=== PATIENT | male | born 1960 | race Caucasian/White ===

== ENCOUNTER → 2020-05-11 12:16 | Outpatient (BNVA) | payer OTHER, SELFPAY | PROVIDERS: PCP Family Medicine; Visit Provider Nurse Practitioner Family | DX: J06.9 Acute upper respiratory infection, unspecified (principal); Z20.828 Contact with and (suspected) exposure to other viral communicable diseases | CPT/HCPCS: 87635 ==

== ENCOUNTER 2023-05-06 07:38 | Emergency (ER) | payer OTHER, SELFPAY ==
--- NOTE | 2023-05-06 08:05 | XR_ITS ---
WS: [id number] XR hip LT 2-3V wo/w pel* [id number] REASON FOR EXAM: trauma FINDINGS: No fracture or other focal bone lesion. Mild narrowing of the hip joint space with mild subchondral sclerosis and osteophytosis of the acetab ulum. No soft tissue abnormality. IMPRESSION: Mild osteoarthritis of the left hip with no acute abnormality identified.
[2023-05-06 08:13] VITALS: BP 182/128; PULSE 115; TEMP 36.6; O2SAT 94; BMI 32.3
--- NOTE | 2023-05-06 08:18 | ECG_ITS ---
[facility] Test Date: 2023-05-06 Pat Name: Gregory Mukherjee Department: Room: Gender: Male Cattle Feeder: : 1960 Requested By: David Tong Order Number: [id number] Piper MD: Sina Berman M.D. Measurements Intervals [place] Rate: 109 P: -52 VA: 141 QRS: -32 QRSD: 89 T: -15 QT: 339 QTc: 458 Interpretive Statements SINUS TACHYCARDIA LEFT AXIS DEVIATION [QRS AXIS < -30] POSSIBLE RIGHT VENTRICULAR CONDUCTION DELAY [RSR (QR) IN V1/V2] VOLTAGE CRITERIA FOR LVH [MEETS CRITERIA IN ONE OF: R(aVL), S(V1), R(V5), R(V5/V6)+S(V1)] Compared to ECG 12/03/2016 15:56:28 Left-axis deviation now present Myocardial infarct finding no longer present Electronically Signed On 05-06-2023 9:34:08 WET MACHINE CUTTER by Sina Berman M.D. [email or web address]
--- NOTE | 2023-05-06 08:30 | ED_ITS ---
HPI - Dizziness 2 General: Chief Complaint: Dizziness Stated Complaint: fall, left hip pain Time Seen by Provider: 05/06/23 07:41 Source: patient Mode of arrival: ambulatory History of Present Illness: HPI Narrative: 63-year-old male presents emergency room complaining of left hip pain has been going on for the last few weeks he fallen a few weeks ago he still been able to ambulate on it did not strike his head and lose consciousness. He also has marked elevated his blood pressure and a mild headache no chest pain. MD elicited complaint: dizziness Associated symptoms: Denies chest pain or chills Review of Systems 2 Const: Denies: fever(s) or chills Card: Denies: chest pain Resp: Denies: dyspnea GI: Denies: abdominal pain : Denies: dysuria, urinary frequency or urinary urgency Musc: Denies: neck pain or back pain Skin/Breast: Denies: rash Physical Exam 2 Const: COMMON NORMALS: no acute distress GENERAL APPEARANCE: cooperative and comfortable ORIENTATION/CONSCIOUSNESS: Yes awake, Yes oriented to person, Yes oriented to place and Yes oriented to time HENMT: COMMON NORMALS: normocephalic, atraumatic and hearing grossly normal bilaterally HEAD & SCALP: normocephalic and atraumatic Resp: COMMON NORMALS: normal respiratory effort, No retractions, No use of accessory muscles and clear to auscultation bilaterally AUSCULTATION: clear to auscultation bilaterally Cardio: COMMON NORMALS: regular rate, regular rhythm and No murmurs present (Cardio) RATE: regular rate RHYTHM: regular rhythm GI: COMMON NORMALS: Soft to palpation and No hepatosplenomegaly present A USCULTATION: Yes normoactive bowel sounds PALPATION: Yes Soft to palpation, No Tenderness to palpation present (GI), No Guarding due to palpation present (GI) and Yes No hepatosplenomegaly present Extremity: COMMON NORMALS: normal to inspection, capillary refill normal, no clubbing, cyanosis or edema, no calf tenderness and no pedal edema Neuro: SENSORIUM/ORIENTATION: Yes oriented to person, Yes oriented to place and Yes oriented to time Skin: COMMON NORMALS: no rashes or lesions noted GENERAL SKIN EXAM: no rashes or lesions noted Course 2 Vital Signs: Vital signs: Vital Signs Temperature 98 F 05/06/23 08:13 Pulse Rate 111 H 05/06/23 11:24 Blood Pressure 132/95 05/06/23 11:24 Pulse Oximetry 93 05/06/23 11:24 Oxygen Delivery Me thod Room Air 05/06/23 11:24 MDM - Dizziness Medical Decision Making X-ray of the hip does not show any acute fracture refers a lot of pain to the SI joint neurologically is lower extremities intact there is no red flag symptoms. Will discharge home with diclofenac. Blood pressure was markedly elevated on arrival after multiple medications and is improved still elevated. Will discharge home on Toprol-XL 25 p.o. daily lisinopril 20 p.o. daily and amlodipine 5 p.o. daily he should follow-up with his primary care doctor within the week to reevaluate his blood pressure. If the SI joint pain continues he may need further evaluation. Medical Records I reviewed the patient's medical records. Lab Data I reviewed the patient's lab results. 05/06/23 08:28 05/06/23 08:28 Laboratory Results WBC 4.92 10^3/uL (3.29-11.43) 05/06/23 08:28 RBC 5.41 10^6/uL (3.85-5.65) 05/06/23 08:28 Hgb 16.60 g/dL (11.27-16.99) 05/06/23 08:28 Hct 48.3 % (37-53) 05/06/23 08:28 MCV 89.3 fl (82-101) 05/06/23 08:28 MCH 30.7 pg (27-33) 05/06/23 08: MCHC 34.4 g/dL (30-55) 05/06/23 08:28 RDW 12.6 % (12.1-15.1) 05/06/23 08:28 Plt Count 226 10^3/cmm (157-399) 05/06/23 08:28 MPV 8.8 fL (7.4-10.4) 05/06/23 08: Neut % (Auto) 54.3 % 05/06/23 08:28 Lymph % (Auto) 35.0 % 05/06/23 08:28 [place] % (Auto) 7.5 % 05/06/23 08:28 Eos % (Auto) 2.2 % 05/06/23 08:28 Baso % (Auto) 0.6 % 05/06/23 08: Neut # (Auto) 2.67 10^3/uL (1.8-7.7) 05/06/23 08: Lymph # (Auto) 1.7 10^3/uL (0.8-4.8) 05/06/23 08:28 [place] # (Auto) 0.4 10^3/uL (0.2-0.9) 05/06/23 08: Eos # (Auto) 0.1 10^3/uL (0.0-0.8) 05/06/23 08: Baso # (Auto) 0.0 10^3/uL (0.0-0.1) 05/06/23 08: Nucleated RBC % (auto) 0 % 05/06/23 08: Nucleated RBCs # 0.0 /100WBC 05/06/23 08:28 Sodium 138 mmol/L (136-145) 05/06/23 08:28 Potassium 3.8 mmol/L (3.5-5.1) 05/06/23 08: Chloride 103 mmol/L (98-107) 05/06/23 08:28 Carbon Dioxide 27 mmol/L (22-29) 05/06/23 08:28 Anion Gap 11.8 (5-19) 05/06/23 08:28 BUN 11 mg/dL (8-23) 05/06/23 08:28 Creatinine 0.9 mg/dL (0.7-1.2) 05/06/23 08: GFR Calculation 84.7 mL/min (90-130) L 05/06/23 08:28 Glucose 108 mg/dL (65-115) 05/06/23 08:28 Calculated Osmolality 286 mOsm/kg (285-295) 05/06/23 08:28 Calcium 9.4 mg/dL (8.5-10.5) 05/06/23 08:28 Total Bilirubin 0.4 mg/dL (0.15-1.2) 05/06/23 08:28 AST 15 U/L (0-40) 05/06/23 08:28 ALT 20 U/L (0-41) 05/06/23 08:28 Alkaline Phosphatase 69 U/L (40-130) 05/06/23 08:28 Total Protein 6.7 g/dL (6.6-8.7) 05/06/23 08:28 Albumin 4.3 g/dL (3.5-5.2) 05/06/23 08:28 Globulin 2.4 g/dL (1.3-4.6) 05/06/23 08:28 All radiology interpretation(s) finalized by discharge Discharge Plan Discharge Patient Disposition: Home Clinical Impression: HTN (hypertension), SI (sacroiliac) joint dysfunction Condition: Stable Prescriptions: New amlodipine 5 mg tablet 5 mg PO DAILY Qty: 30 0RF Toprol XL 25 mg tablet extended release 24 hr 25 mg PO DAILY Qty: 30 0RF lisinopril 20 mg tablet 20 mg PO DAILY Qty: 30 0RF diclofenac sodium 75 mg tablet,delayed release (DR/EC) 75 mg PO Q12H PRN (Reason: pain) Qty: 20 0RF Discharge Orders: Discharge ED (Routine); Ordered 05/06/23 Ordered By: David Sargent Referrals: Robbin Manzo MD [Primary Care Provider] - Discharge Diet: Usual diet Discharge Activity: Increase activity as tolerated Patient Instructions: Opioid Safety, Pain Management Activity Restrictions/Additional Instructions: Thank you for choosing [facility] for your healthcare needs today. Please realize this is an emergency room and that we are providing you with a medical screening exam and this may not be complete and all inclusive of all the testing and or work up that you may need to determine your ailment or severity of your illness. It is very important that you follow up as instructed or that you return to the Emergency Department should you have concerns or if your condition changes or worsens in any way. You were seen today for elevated blood pressure and left hip and sacroiliac joint pain. X-rays of your hip were unremarkable. Neurologically lower extremities intact. Your blood pressure was markedly elevated. Recommend that you follow-up with your primary care doctor within the next week. You are given 3 different blood pressure medications to start with you will likely need further adjustment of your medications as an outpatient basis. He also given an anti-inflammatory to use for pain. Follow-up with your primary care doctor if the SI joint pain continues to cause discomfort they can recommend further evaluation. Coding Level of Care Code ED Electrical Controls Designer for Rohini Araiza
[2023-05-06] MEDS: amlodipine 5 mg Tablet PO (08:37)
[2023-05-06] MEDS: lisinopril 20 mg Tablet PO (08:37)
[2023-05-06] MEDS: hyDRALAzine 20 mg/mL INJ 1 mL 10 MG IVP (08:37)
[2023-05-06 08:38] LABS: Basophils % 0.6 %; Eosinophils # 0.1 10^3/uL (0.0-0.8); Eosinophils % 2.2 %; Hematocrit 48.3 % (37-53); Lymphocytes # 1.7 10^3/uL (0.8-4.8); Mean Corpuscular HGB Conc 34.4 g/dL (30-55); Mean Corpuscular Hemoglobin 30.7 pg (27-33); Mean Corpuscular Volume 89.3 fl (82-101); Mean Platelet Volume 8.8 fL (7.4-10.4); Monocytes # 0.4 10^3/uL (0.2-0.9); Monocytes % 7.5 %; Neutrophils # 2.67 10^3/uL (1.8-7.7); Neutrophils % 54.3 %; Nucleated Red Blood Cells % 0 %; Platelet Count 226 10^3/cmm (157-399); Red Blood Count 5.41 10^6/uL (3.85-5.65); Red Cell Distribution Width 12.6 % (12.1-15.1); White Blood Count 4.92 10^3/uL (3.29-11.43)
[2023-05-06 08:54] LABS: Alanine Aminotransferase 20 U/L (0-41); Albumin Level 4.3 g/dL (3.5-5.2); Alkaline Phosphatase 69 U/L (40-130); Anion Gap 11.8 (5-19); Aspartate Amino Transferase 15 U/L (0-40); Blood Urea Nitrogen 11 mg/dL (8-23); Calcium 9.4 mg/dL (8.5-10.5); Carbon Dioxide 27 mmol/L (22-29); Chloride 103 mmol/L (98-107); Globulin 2.4 g/dL (1.3-4.6); Glomerular Filtration Rate 84.7 mL/min (90-130); Glucose 108 mg/dL (65-115); Osmolality Calculated 286 mOsm/kg (285-295); Potassium 3.8 mmol/L (3.5-5.1); Sodium 138 mmol/L (136-145); Total Bilirubin 0.4 mg/dL (0.15-1.2); Total Protein 6.7 g/dL (6.6-8.7)
[2023-05-06 10:18] VITALS: BP 155/115; PULSE 115; O2SAT 92
[2023-05-06 11:24] VITALS: BP 132/95; PULSE 111; O2SAT 93
[2023-05-06] MEDS: metoprolol succinate ER (24 HR) 25 mg Tablet PO (11:34)
== END 2023-05-06 11:57 | disposition home or self-care (01) ==
PROVIDERS: Emergency Provider Family Medicine; PCP Family Medicine
DX: I10 Essential (primary) hypertension (principal); M99.04 Segmental and somatic dysfunction of sacral region
CPT/HCPCS: 73502; 80053; 85025; 93005; 96374; 99285; J0360

== ENCOUNTER 2023-06-02 07:43 | Outpatient (CLI) | payer MEDICARE, OTHER, SELFPAY ==
--- NOTE | 2023-06-02 07:52 | USCV_ITS ---
Gregory Mukherjee Age: 63 Gender: M : 1960 Exam Date: 06/02/2023 07:59 Ordering Phys: Kenan Wilson Technologist: SEJAL [place] [facility] [place]: DIZZINESS Risk Factors: Previous Vascular Surgery: Right Brachial BP: / Left Brachial BP: / Right Left Velocity (cm/s) Spectral Plaque Velocity (cm/s) Spectral Plaque Syst/Diast Broadening Syst/Diast Broadening 52.60/ 10.60 Prox CCA 73.80 / 21.50 77.60/ 23.70 Mid CCA 67.80 / 27.80 57.60/ 22.90 Distal CCA 44.00 / 17.10 51.80/ 22.20 Prox ICA 46.70 / 13.10 48.80/ 18.10 Mid ICA 47.10 / 18.70 39.70/ 17.90 Distal ICA 50.10 / 21.70 51.50 ECA 61.20 0.67 ICA/CCA 0.68 Not Vertebral Antegrade Visualized / cm/s 43.40/ 19.30 cm/s Tri Subclavian Tri 75.50 94.80 FINDINGS Comparison: none available. No stenosis in either carotid artery. Abnormal waveforms in the ICA's, early decrease in diastole forward flow. Velocity remains above baseline. No flow seen in the right vertebral artery.Antegrade left vertebral artery. CONCLUSIONS No carotid stenosis. Abnormal waveform in the ICA's. Etiology may be cardiac, recommend evaluation by cardiology. Dr. Marcia Haley DO (Electronically Signed) Final Date: 02 June 2023 08:46 S
== END 2023-06-02 07:44 | disposition home or self-care (01) ==
LOC: RAD 07:43
PROVIDERS: PCP Family Medicine; Visit Provider Nurse Practitioner
DX: R42 Dizziness and giddiness (principal); R93.1 Abnormal findings on diagnostic imaging of heart and coronary circulation
CPT/HCPCS: 93880

== ENCOUNTER → 2023-08-05 10:20 | Outpatient (BNVA) | payer MEDICARE, SELFPAY | PROVIDERS: PCP Family Medicine; Referring Provider Physician Assistant; Visit Provider Internal Medicine Cardiovascular Disease | DX: I11.9 Hypertensive heart disease without heart failure (principal); E78.5 Hyperlipidemia, unspecified; I77.9 Disorder of arteries and arterioles, unspecified; F17.220 Nicotine dependence, chewing tobacco, uncomplicated; R07.89 Other chest pain | CPT/HCPCS: 36415; 80048; 83880; 99204 ==

== ENCOUNTER 2023-08-27 08:51 | Outpatient (CLI) | payer MEDICARE, SELFPAY ==
--- NOTE | 2023-08-27 09:00 | USCV_ITS ---
Gregory Mukherjee Age: 63 Gender: M : 1960 Exam Date: 08/27/2023 09:19 Ordering Phys: Glo Shin MD ([email or web address]) Technologist: [place] [facility] [place]: chest pain cad BP: 160 / 90 HR: 767 Rhythm: Sinus Technical Quality: Adequate MEASUREMENTS (Male / Female) Normal Values 2D ECHO LV Diastolic Diameter PLAX 4.0 cm 4.2 - 5.9 / 3.9 - 5.3 cm IVS Diastolic Thickness 1.4 cm 0.6 - 1.0 / 0.6 - 0.9 cm IVS Systolic Thickness 1.4 cm LVPW Diastolic Thickness 1.3 cm 0.6 - 1.0 / 0.6 - 0.9 cm LVPW Systolic Thickness 1.5 cm LVOT Diameter 2.0 cm LV Ejection Fraction 2D Teich 62.1 % LV Ejection Fraction MOD 2C 53.1 % LV Ejection Fraction 2C AL 55.6 % LA Diameter 3.6 cm RA Systolic Volume 4C AL 32.3 ml RA Systolic Volume 4C MOD 29.7 ml LA Sys Volume AL 49.8 cm cubed LA Sys Volume Index AL 23.6 cm cubed/m squared Aorta at Sinotubular Diameter 3.3 cm IVC Diameter 1.5 cm M-MODE LA Ao Ratio MM 1.0 AV Cusp Separation MM 2.5 cm DOPPLER AV Peak Velocity 98.8 cm/s LVOT Peak Velocity 93.0 cm/s AV Area Cont Eq vti 4.0 cm squared AV Area Cont Eq pk 3.1 cm squared MV Peak Velocity 159.0 cm/s TV Peak Velocity 140.3 cm/s TR Peak Velocity 203.0 cm/s TR Peak Gradient 16.5 mmHg TV Peak E Velocity 130.0 cm/s Right Atrial Pressure 3.0 mmHg Pulmonary Artery Systolic Pressu 19.5 mmHg PV Peak Velocity 91.0 cm/s FINDINGS Left Ventricle Normal LV size and ejection fraction of 56%. No gross wall motion abnormalities.mild left ventricular hypertrophy. Right Ventricle The right ventricle is normal in size and function. Right Atrium The right atrium is normal in size. Left Atrium The left atrium is normal in size. Mitral Valve Mild mitral valve regurgitation. Aortic Valve No gross abnormalities noted Tricuspid Valve Trace tricuspid valve regurgitation. Estimated pulmonary artery peak systolic pressure 20 mmHg Pulmonic Valve Pulmonic valve not well visualized. Pericardium Normal pericardium without effusion. Aorta Normal ascending aorta dimension. IVC Normal IVC dimension with <50% respiratory change of the inferior vena cava. CONCLUSIONS Normal LV size and ejection fraction of 56%. No gross wall motion abnormalities.mild left ventricular hypertrophy. Mild mitral valve regurgitation. Estimated right atrial pressure of 10 mmHg. Estimated pulmonary artery peak systolic pressure 20 mmHg. There is no pericardial effusion. There are no intracardiac masses. Compared to the study from 12/04/2016, there may not roula significant change in the 2D findings. Dr Glo Shin MD [facility] (Electronically Signed) Final Date: 27 Aug 2023 22:38 S
== END 2023-08-27 08:52 | disposition home or self-care (01) ==
LOC: RAD 08:52
PROVIDERS: PCP Family Medicine; Visit Provider Internal Medicine Cardiovascular Disease
DX: R06.09 Other forms of dyspnea (principal); I34.0 Nonrheumatic mitral (valve) insufficiency
CPT/HCPCS: 93306

== ENCOUNTER 2023-09-02 12:01 | Outpatient (CLI) | payer MEDICARE, SELFPAY ==
--- NOTE | 2023-09-02 12:06 | CT_ITS ---
WS: [id number] CT ANGIOGRAM CEREBRAL AND CAROTID ARTERIES HISTORY: Vertigo/HTN TECHNIQUE: CT angiogram is performed of the carotid and cerebral arteries. During arterial injection imaging is obtained from the skull vertex to the aortic arch in 1.25 mm imaging. Coronal and sagittal reformats are submitted. Additional multi planar reformats of the carotid and cerebral arteries are submitted, MIP imaging also reviewed. NASCET criteria utilized. [facility] CT [facility] at least one of these dose optimization techniques: automated exposure control; mA and/or kV adjust ment per patient size (includes targeted exams where dose is matched to clinical indication); or iter ative reconstruction. CONTRAST: Omnipaque 350; 100 mL IV. DLP: 1255.17 mGy.cm COMPARISON: Carotid ultrasound 06/02/[address]: Mild atrophy and small vessel ischemic disease. No acute hemorrhage or edema. Carotid Angiogram: Right carotid: Common carotid artery: Tortuous but otherwise normal. No significant stenosis. Internal carotid artery: No plaque or stenosis. External carotid artery: Patent. Left carotid: Common carotid artery: Short segment of the proximal LEFT common artery is obscured by contrast injec tion. The artery above the clavicle is normal. No significant plaque. No stenosis. Internal carotid artery: No plaque or stenosis. External carotid artery: Patent. Right vertebral artery: Absent. No enhancement of the RIGHT vertebral artery. Left vertebral artery: Unremarkable. Arises normally from the subclavian artery. Subclavian arteries: Normal RIGHT subclavian artery. LEFT subclavian artery is partially obscured by contrast injection. Upper thorax: Normal. Thyroid gland: Normal. Osseous structures: Anterior cervical fusion at C3-4 with fusion across the disc space. Moderate spon dylosis. CEREBRAL ANGIOGRAM: Intracranial vertebral arteries: There is flow identified within a very small caliber distal RIGHT ve rtebral artery. Reconstitution begins near the foramen magnum. Dominant LEFT vertebral artery. Basilar artery: No significant stenosis or occlusion. No aneurysm. Intracranial Internal carotid arteries: Demonstrates no significant stenosis or plaque. Middle cerebral arteries: Normal. Anterior cerebral arteries and ACOM: Normal. Posterior cerebral arteries and PCOM's: Normal. Dural venous sinuses are normally enhancing. Mastoid air cells: Abnormal LEFT mastoid air cells. Probably mastoidectomy although that history was not provided. Paranasal sinuses: No air-fluid levels. Calvarium: Normal. CT/CT angio headneck* [id number] IMPRESSION: 1. No significant cervical carotid artery stenosis. The proximal LEFT cervical carotid artery is obscured by contrast injection. Otherwise normal. 2. Occluded RIGHT cervical vertebral artery. Mild reconstitution near the skul l base of the RIGHT vertebral artery which is small caliber. 3. No [place] aneurysm
[2023-09-02] MEDS: iohexol 300 mg/mL 100 mL Btl IV (12:45)
== END 2023-09-02 12:02 | disposition home or self-care (01) ==
LOC: RAD 12:01
PROVIDERS: PCP Family Medicine; Visit Provider Internal Medicine Cardiovascular Disease
DX: I11.9 Hypertensive heart disease without heart failure (principal); I65.01 Occlusion and stenosis of right vertebral artery
CPT/HCPCS: 70496; 70498; Q9967

== ENCOUNTER 2024-11-18 10:09 | Outpatient (CLI) | payer MEDICARE, SELFPAY ==
--- NOTE | 2024-11-18 10:24 | USCV_ITS ---
LonnyGregory arzate Age: 64 Gender: M : 1960 Exam Date: 11/18/2024 10:33 Ordering Phys: Kenan Wilson Technologist: LI Exam Location[place] [facility] [place] Indication: right VA occlusion Risk Factors: Previous Vascular Surgery: Right Brachial BP: / Left Brachial BP: / Right Left Velocity (cm/s) Spectral Plaque Velocity (cm/s) Spectral Plaque Syst/Diast Broadening Syst/Diast Broadening 57.70/ 15.10 Prox CCA 86.90 / 24.80 66.60/ 20.90 Mid CCA 52.20 / 15.60 64.70/ 25.00 Distal CCA 49.40 / 17.50 69.90/ 30.40 Prox ICA 39.00 / 13.60 46.40/ 22.10 Mid ICA 60.00 / 29.80 43.40/ 19.10 Distal ICA 49.40 / 24.90 64.60 ECA 48.80 1.10 ICA/CCA 0.80 Antegrade Vertebral Antegrade 13.20/ 7.20 cm/s 46.10/ 23.30 cm/s Tri Subclavian Tri 27.60 105.8 0 FINDINGS Comparison:. 06/02/23 No significant elevation of systolic or diastolic velocities. Mild calcified plaque in the bifurcations. Antegrade right vertebral artery is seen on todays exam. Small caliber. CONCLUSIONS Bilateral ICA stenosis less than 50%. Small caliber but patent right vertebral artery identified. Mild carotid plaque. Dr. Marcia Haley DO (Electronically Signed) Final Date: 18 November 2024 11:22 S
== END 2024-11-18 10:10 | disposition home or self-care (01) ==
LOC: RAD 10:13
PROVIDERS: PCP Nurse Practitioner; Visit Provider Nurse Practitioner
DX: I65.23 Occlusion and stenosis of bilateral carotid arteries (principal)
CPT/HCPCS: 93880

== ENCOUNTER 2025-01-19 08:47 | Outpatient (CLI) | payer MEDICARE, SELFPAY ==
--- NOTE | 2025-01-19 08:54 | XR_ITS ---
WS: [id number] Exam: XR cervical spine 3V* [id number] Date/Time of Exam: 01/19/2025 8:56 AM Reason For Exam: CERVICAL SPONDYLOSIS DLP: No fracture or malalignment. Anterior fusion of C3-4. The fusion is in good alignment and ossified. No hardware complication. Degenerative narrowing of the C5-6 disc with spondylosis. Normal paraspinal soft tissues. The odontoid is intact. XR/XR cervical spine 3V* [id number] IMPRESSION: 1. Degenerative change. No fracture or malalignment. 2. Stable appearing C4-5 anterior fusion.
--- NOTE | 2025-01-19 08:55 | XR_ITS ---
WS: [id number] Exam: XR lumbar spine 2-3V* [id number] Date/Time of Exam: 01/19/2025 8:56 AM Reason For Exam: SPONDYLOSIS OF LUMBOSACRAL REGION WITHOUT MYELOPATHY OR RADI DLP: Comparison 12/25/2008. No bowel obstruction or free air. 2.5 cm eggshell type calcification along the medial margin of the RIGHT renal silhouette. There are also faint smaller calcifications overlying the LEFT kidney. These may represent renal calculi. No sign of organ enlargement. Bony structures are unremarkable. XR/XR lumbar spine 2-3V* [id number] IMPRESSION: 1. No acute abdominal finding. 2. RIGHT and LEFT abdominal calcifications that are nonspecific but might repre sent urinary tract calculi.
== END 2025-01-19 08:48 | disposition home or self-care (01) ==
LOC: RAD 08:49
PROVIDERS: PCP Nurse Practitioner; Visit Provider Student in an Organized Health Care Education/Training Program
DX: M47.812 Spondylosis without myelopathy or radiculopathy, cervical region (principal)
CPT/HCPCS: 72040; 72100

== ENCOUNTER 2025-02-09 10:17 | Emergency (ER) | payer MEDICARE, SELFPAY ==
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
[2025-02-09 10:49] VITALS: BP 132/97; PULSE 100; RESP 16; TEMP 36.7; O2SAT 96
[2025-02-09 11:08] LABS: Glucose Urine UA 1+ (Normal); Nitrate Urine Negative (Negative); Specific Gravity, Urine 1.014 (1.005-1.030)
--- OUTSIDE RECORDS SUMMARY | 2025-02-09 11:08 | XMS_ITS | Clinical Summary ---
Author Organization [facility] Administrative Offices Address [address] [place] [address] Care Team Providers Care Edger Hand Name Role Phone Unavailable Primary Care Provider Unavailabl e Allergies No known active allergies Medications amLODIPine (NORVASC) 10 mg tablet Take 1 Tablet by mouth daily. 4 Active diclofenac sodium (VOLTAREN) 75 mg Tablet, Delayed Release (E.C.) Take 1 Tablet by mouth 2 times daily. 4 Active lisinopriL (PRINIVIL) 40 mg tablet Take 1 Tablet by mouth daily. 4 Active rosuvastatin (CRESTOR) 10 mg tablet Take 10 mg by mouth late in the day. 4 Active metoprolol succinate (TOPROL XL) 50 mg Extended Release 24 hour tablet Take 1 Tablet by mouth daily. 4 Active solifenacin (VESICARE) 5 mg TabletIndications :Elevated PSA,Benign prostatic hyperplasia with lower urinary tract symptoms, symptom details unspecified,Urge incontinence Take 1 Tablet (5 mg) by mouth daily. 30 Tablet 1 5 Active tamsulosin (Flomax) 0.4 mg capsuleIndication s:Elevated PSA,Benign prostatic hyperplasia with lower urinary tract symptoms, symptom details unspecified,Urge incontinence Take 2 Capsules (0.8 mg) by mouth daily. 60 Capsule 11 5 Active Active Problems No known active problems Encounters Date Type Department Care Team Description 02/08/2025 Telephone [facility] Urology [address] [place] [phone] Jt Becker MD Flank Pain 11/18/2024 Telephone [place] [address] [place] [address] Jt Becker MD Results 11/17/2024 3:15 PM CDT Office Visit [place] [address] [place] [phone] Jt Becker MD Elevated PSA (Primary Dx) from Last 3 Months Social History Tobacco Use Types Packs/Day Years Used Date Smoking Tobacco: Never Assessed Tobacco Cessation:Counseling Given: No Sex and Gender Information Value Date Recorded Sex Assigned at Not on file Legal 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 [facility] Gender Identity Not on file Sexual Orientation Not on file Plan of Treatment Upcoming Encounters Date Type Department Care Team (Late st Contact Info) Description 03/16/2025 10:30 AM [facility] Office Visit [address] [place] [address] Jt Becker MD [address] [place], [place] [address]e [address] [place] [phone] Health Maintenance Due Date Last Done Comments DTAP/TDAP/TD VACCINES (1 - Tdap) 1977 COLORECTAL SCREENING 2003 Colorectal Cancer Screening 2003 FIT-DNA Q 3 years 2003 FIT/FOBT Q 1 year 2003 Flex Sig/CT Colonography Q 5 years 2003 PNEUMOCOCCAL VACCINE 50+ YEARS (1 of 1 - PCV) 01/28/20 08 ZOSTER VACCINE (1 of 2) 01/28/2008 INFLUENZA VACCINE (#1) 2024 RSV VACCINE (60+ or ) (1 - 1-dose 75+ series) 2033 Procedures Procedure Name Priority Date/Time Associated Diagnosis Comments PSA Routine 11/17/2024 3:43 PM CDT Elevated PSA POC URINALYSIS DIPSTICK AUTOMATED Routine 11/17/2024 3:34 PM CDT Elevated PSA from Last 3 Months Results * PSA (11/17/2024 3:43 PM CDT) PSA 2.19 < OR = 4.00 ng/mL [facility] Comment: The total PSA value from this assay system is standardized against the WHO standard. The test result will be approximately 20% lower when compared to the equimolar-standardized total PSA (Katia Solo). Comparison of serial PSA results should be interpreted with this fact in mind. This test was performed using the Siemens chemiluminescent method. Values obtained from different assay methods cannot be used interchangeably. PSA levels, regardless of value, should not be interpreted as absolute evidence of the presence or absence of disease. Test Performed at: [facility] [address] [facility] [address] Loyd Sorto MD Blood 11/17/2024 3:43 PM CDT 11/17/2024 3:45 PM CDT Jt Becker MD CHEMISTRY ORDERABLES Final R esult [facility] [phone] [facility] [id number] [place] [address] [place] [address] * POC URINALYSIS DIPSTICK AUTOMATED (11/17/2024 3:34 PM CDT) COLOR UA POC Yellow Pale to Dark Yellow [facility] UA POC Clear Clear, Other [facility] GLUCOSE [facility] POC Negative Negative, Normal [facility] BILIRUBIN [facility]A POC Negative Negative [facility] KETONES UA POC Negative Negative [facility] SPECIFIC GRAVITY UA POC 1.010 1.000 - 1.030 [facility] BLOOD UA POC Negative Negative [facility] C LINIC UROLOGY [place] PH UA POC 6.0 5.0 - 8.0 [facility] CLIN IC [facility]OLOGY [place] PROTEIN UA POC Negative Negative [facility] UROBILINOGEN UA POC 0.2 <2.0 mg/dL [facility] NITRITE UA POC Negative Negative [facility] [place] LEUKOCYTE ESTERASE UA POC Negative Negative [facility] [place] KIT LOT NUMBER POC [id number] [facility] [place] KIT EXP DATE POC 08.24.25 [facility] [place] Urine 11/17/2024 3:34 PM CDT us Jt Becker MD POINT OF CARE TESTING Final Result [facility] CLIA# [id number] [address] [place] [address] [address] [place] [address], from Last [address] [place] [address] [place] [address] MEDICARE HMO
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
--- OUTSIDE RECORDS SUMMARY | 2025-02-09 11:09 | XMS_ITS | Encounter Summary ---
Author Organization [facility] Address [address] [place] [address] Care Team Providers Care Customer Services Manager Name Role Phone Unavailable Primary Care Provider Unavailabl e Reason for Visit * Reason Onset Date Comments Flank Pain 02/08/2025 Encounter Details Date Type Department Care Team (Late st Contact Info) Description 02/08/2025 Telephone [facility] [place] [address] [place] [address] Jt Becker MD [address] [place] [address] Flank Pain Social History Tobacco Use Types Packs/Day Years Used Date Smoking Tobacco: Never Assessed Sex and Gender Information Value Date Recorded Sex Assigned at Not on file 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 Pt is c/o flank pain and requested an appt on 02/23. Advised that [facility] doesn't have anything until 02/24. He states that he works that day, and requested for his appt to be on his next day off, which was scheduled to pt's requested need. Pt advised that if he has ongoing symptoms, he would need to go to the ER. Advised the pt to have [facility] in [place] to send his records to us for us to review prior to his appt. Pt verbalized understanding of instructions. documented in this encounter Plan of Treatment Upcoming Encounters Date Type Department Care Team (Late st Contact Info) Description 03/16/2025 10:30 AM TOUR ESC[facility] Office Visit [facility] [place] [address] [facility] [address] [place] [address] Jt Becker MD [address] [facility] [address] [place] [address] documented as of this encounter Visit Diagnoses Not on filedocumented in this encounter
[2025-02-09 11:53] LABS: Hematocrit 46.3 % (37-53); Hemoglobin 15.70 g/dL (11.27-16.99); Mean Corpuscular HGB Conc 33.9 g/dL (30-55); Mean Corpuscular Hemoglobin 29.9 pg (27-33); Mean Corpuscular Volume 88.2 fl (82-101); Nucleated Red Blood Cells % 0 %; Platelet Count 216 10^3/cmm (157-399); Red Blood Count 5.25 10^6/uL (3.85-5.65); White Blood Count 5.64 10^3/uL (3.29-11.43)
[2025-02-09 12:10] LABS: Alanine Aminotransferase 21 U/L (0-41); Albumin Level 4.8 g/dL (3.5-5.2); Alkaline Phosphatase 60 U/L (40-130); Anion Gap 15.9 (5-19); Aspartate Amino Transferase 15 U/L (0-40); Blood Urea Nitrogen 12 mg/dL (8-23); Calcium 9.7 mg/dL (8.5-10.5); Carbon Dioxide 27 mmol/L (22-29); Chloride 101 mmol/L (98-107); Creatinine Clr Calc Pharmacy 83.5945; Globulin 2.0 g/dL (1.3-4.6); Glucose 137 mg/dL (65-115); Osmolality Calculated 292 mOsm/kg (285-295); Potassium 3.9 mmol/L (3.5-5.1); Sodium 140 mmol/L (136-145); Total Protein 6.8 g/dL (6.6-8.7)
--- NOTE | 2025-02-09 13:30 | CT_ITS ---
WS: [id number] CT ABDOMEN AND PELVIS NONCONTRAST HISTORY: abd pain, bilateral back pain. History of stones. TECHNIQUE: Imaging performed through the abdomen and pelvis. Coronal and sagittal reformats are submitted. All CT scans at [facility] use at least one of these dose optimization techniques: automated exposure control; mA and/or kV adjustment per patient size (includes targeted exams where dose is matched to clinical indication); or iterative reconstruction. DLP: 864.31 mGy.cm COMPARISON: 01/15/2007 Lower thorax: Lung bases are clear. Bilateral gynecomastia. Mild cardiomegaly. Small sized hiatal hernia. Liver: Normal size liver. No mass or bile duct dilatation. Gallbladder: Normal gallbladder. No pericholecystic fluid or cholelithiasis. No gallbladder wall thickening. Pancreas: Normal size and attenuation. Normal pancreatic duct. No pancreatitis or mass. Spleen: Normal. Adrenal glands: Normal. No mass. Right kidney: Normal size RIGHT kidney. No perinephric stranding or obstruction. There is a tiny nonobstructing calcification in the lower pole. 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 RIGHT ureter is normal size. Left kidney: Normal size kidney without perinephric stranding. Low-attenuation 1.3 cm mass in the posterior kidney may be a small cyst. Curvilinear calcification in the central renal pelvis is probably an additional renal artery aneurysm measuring 6 mm although this 1 is smaller and less well-defined. No ureteral obstruction. Aorta: Mild atherosclerosis abdominal aorta with no aneurysm. No free fluid, intraperitoneal air or significant lymphadenopathy. GI tract: Normal noncontrast imaging of the stomach, small bowel and colon. No obstruction or wall thickening. Normal appendix. Abdominal wall: Small umbilical hernia contains fat only. Pelvis: No free fluid or adenopathy. Urinary bladder is well distended. Prostate gland is mildly enlarged and heterogeneous. Fat-containing inguinal canals. Lipoma in the LEFT vastus lateralis muscle. Osseous structures: Unremarkable. CT/CT kidney stone [id number] IMPRESSION: 1. No hydronephrosis or renal obstruction. 2. 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 Aneurysms are in the renal pelvis. 3. No GI tract obstruction or colitis. 4. Mild hepatic steatosis. 5. No free fluid or ascites.
[2025-02-09 14:00] LABS: Lipase 32 U/L (13-60)
[2025-02-09] MEDS: HYDROmorphone 0.5 MG/0.5 ML INJ 1 MG IM (14:22)
--- NOTE | 2025-02-09 15:12 | W.ED.ABDPA2 ---
HPI - Abdominal Pain General: Chief Complaint: Abdominal Pain Stated Complaint: Pain in Lower R Back Time Seen by Provider: 02/09/25 11:54 History of Present Illness: 65 yo M with Hx of kidney stones presents with worsening bilateral flank pain for ~1 month, acutely severe this morning. Pain is equal on both sides, rated 7?8/10, worsened by twisting/turning. Pt thinks this is kidney stones; has had stones before and required outpatient retrieval twice by Dr. Rodriguez. Reports possible hematuria and two episodes of emesis this morning, likely due to pain. Denies fever and dysuria. Denies midline spinal pain. Pt is accompanied by girlfriend (driving) Related Data Home Medications ?Medication ?Instructions ?Recorded ?Confirmed rosuvastatin 10 mg tablet 10 mg PO DAILY 08/05/23 02/09/25 dutasteride 0.5 mg capsule See Rx Instructions .Route .COMPLEX 02/09/25 02/09/25 meloxicam 15 mg tablet 15 mg PO DAILY 02/09/25 02/09/25 tamsulosin 0.4 mg capsule 0.8 mg PO QPM 02/09/25 02/09/25 tramadol 50 mg tablet 50 mg PO BID 02/09/25 02/09/25 Previous Rx's ?Medication ?Instructions ?Recorded amlodipine 10 mg tablet 10 mg PO DAILY 90 days #90 tabs 08/05/23 lisinopril 40 mg tablet 40 mg PO DAILY #90 tabs 06/20/24 Allergies Allergy/AdvReac Type Severity Reaction Status Date / Time No Known Allergies Allergy Verified 08/05/23 10:28 [facility] ED PFSH: Family History Father Chronic kidney disease (CKD) Cancer Heart disease Sudden cardiac Mother Diabetes Brother Stroke Denies family history of CAD (coronary artery disease) Congestive heart failure (CHF) Aneurysm Arrhythmia Atrial fibrillation TIA (transient ischemic attack) Congenital heart disease Carotid artery disease Pulmonary embolism Cardiomyopathy Physical Exam Const: COMMON NORMALS: no acute distress, patient oriented x3 and alert HENMT: COMMON NORMALS: normocephalic and atraumatic HEAD & SCALP: normocephalic and atraumatic Eye: COMMON NORMALS: Equal, round and reactive pupils present, EOMs intact bilaterally and no scleral icterus PUPIL: Yes Equal, round and reactive pupils present Resp: COMMON NORMALS: normal respiratory effort and No retractions Cardio: COMMON NORMALS: regular rate, regular rhythm and No murmurs present (Cardio) RATE: regular rate RHYTHM: regular rhythm GI: COMMON NORMALS: Normal to inspection, nondistended, normoactive bowel sounds present, Soft to palpation and non-tender PALPATION: Yes Soft to palpation Back/Pelvis: OTHER: Pain reproducible with motion of the spine, particularly twisting of the torso. No midline spinal pain reported. Bilateral flank tenderness to palpation. Neuro: COMMON NORMALS: patient oriented x3 SENSORIUM/ORIENTATION: Yes alert Skin: COMMON NORMALS: no rashes or lesions noted GENERAL SKIN EXAM: no rashes or lesions noted Course Vital Signs: Vital signs: Vital Signs Temperature 98.1 F 02/09/25 10:49 Pulse Rate 100 02/09/25 10:49 Respiratory Rate 16 02/09/25 10:49 Blood Pressure 132/97 02/09/25 10:49 Pulse Oximetry 96 02/09/25 10:49 Oxygen Delivery Me thod Room Air 02/09/25 10:49 MDM - Abdominal Pain Medical Decision Making 65 yo M with Hx of nephrolithiasis presents with 1 month bilateral flank pain worse today, possible hematuria, and two episodes of emesis. No fever or dysuria. Vitals: HR 100, BP 132/97, RR 16, afebrile, SpO2 98% RA. PE: bilateral flank tenderness; pain worsens with torso twisting; no midline spinal pain. Patient remained hemodynamically stable through ED course. CBC, CMP, urinalysis are unremarkable. There is no hematuria noted on UA. CT stone protocol was performed showing no evidence of ureteral or nephrolithiasis. Asymptomatic bilateral renal artery aneurysm is noted but he has no symptoms consistent with rupture and size is not large enough to require emergent intervention. He will be discharged in stable and improved condition with follow-up to primary care as needed. I suspect his pain is likely musculoskeletal in nature and we discussed this. Lab Data 02/09/25 11:46 02/09/25 11:46 Labs/Radiology: Radiology Impressions Abdomen/Pelvis CT 02/09/25 13:30 IMPRESSION: 1. No hydronephrosis or renal obstruction. 2. 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 Smaller 6 mm distal LEFT renal artery aneurysm. Aneurysms are in the renal pelvis. 3. No GI tract obstruction or colitis. 4. Mild hepatic steatosis. 5. No free fluid or ascites. Laboratory Results WBC 5.64 10^3/uL (3.29-11.43) 02/09/25 11:46 RBC 5.25 10^6/uL (3.85-5.65) 02/09/25 11:46 Hgb 15.70 g/dL (11.27-16.99) 02/09/25 11:46 Hct 46.3 % (37-53) 02/09/25 11:46 MCV 88.2 fl (82-101) 02/09/25 11:46 MCH 29.9 pg (27-33) 02/09/25 11:46 MCHC 33.9 g/dL (30-55) 02/09/25 11:46 RDW 12.7 % (12.1-15.1) 02/09/25 11:46 Plt Count 216 10^3/cmm (157-399) 02/09/25 11:46 MPV 8.8 fL (7.4-10.4) 02/09/25 11:46 Neut % (Auto) 67.5 % 02/09/25 11:46 Lymph % (Auto) 22.3 % 02/09/25 11:46 [place] % (Auto) 8.5 % 02/09/25 11:46 Eos % (Auto) 0.9 % 02/09/25 11:46 Baso % (Auto) 0.4 % 02/09/25 11:46 Neut # (Auto) 3.81 10^3/uL (1.8-7.7) 02/09/25 11:46 Lymph # (Auto) 1.3 10^3/uL (0.8-4.8) 02/09/25 11:46 [place] # (Auto) 0.5 10^3/uL (0.2-0.9) 02/09/25 11:46 Eos # (Auto) 0.1 10^3/uL (0.0-0.8) 02/09/25 11:46 Baso # (Auto) 0.0 10^3/uL (0.0-0.1) 02/09/25 11:46 Nucleated RBC % (auto) 0 % 02/09/25 11:46 Nucleated RBCs # 0.0 /100WBC 02/09/25 11:46 Sodium 140 mmol/L (136-145) 02/09/25 11:46 Potassium 3.9 mmol/L (3.5-5.1) 02/09/25 11:46 Chloride 101 mmol/L (98-107) 02/09/25 11:46 Carbon Dioxide 27 mmol/L (22-29) 02/09/25 11:46 Anion Gap 15.9 (5-19) 02/09/25 11:46 BUN 12 mg/dL (8-23) 02/09/25 11:46 Creatinine 0.9 mg/dL (0.7-1.2) 02/09/25 11:46 GFR Calculation 84.2 mL/min (90-130) L 02/09/25 11:46 Glucose 137 mg/dL (65-115) H 02/09/25 11:46 Calculated Osmolality 292 mOsm/kg (285-295) 02/09/25 11:46 Calcium 9.7 mg/dL (8.5-10.5) 02/09/25 11:46 Total Bilirubin 0.4 mg/dL (0.15-1.2) 02/09/25 11:46 AST 15 U/L (0-40) 02/09/25 11:46 ALT 21 U/L (0-41) 02/09/25 11:46 Alkaline Phosphatase 60 U/L (40-130) 02/09/25 11:46 Total Protein 6.8 g/dL (6.6-8.7) 02/09/25 11:46 Albumin 4.8 g/dL (3.5-5.2) 02/09/25 11:46 Globulin 2.0 g/dL (1.3-4.6) 02/09/25 11:46 Lipase 32 U/L (13-60) 02/09/25 11:46 Urine Color Yellow (Yellow) 02/09/25 11:04 Urine Appearance Clear (CLEAR) 02/09/25 11:04 Urine pH 6.5 (5-7) 02/09/25 11:04 Ur Specific [place] 1.014 (1.005-1.030) 02/09/25 11:04 Urine Protein Negative (Negative) 02/09/25 11:04 Urine Glucose (UA) 1+ (Normal) H 02/09/25 11:04 Urine Ketones Negative (Negative) 02/09/25 11:04 Urine Blood Negative (Negative) 02/09/25 11:04 Urine Nitrate Negative (Negative) 02/09/25 11:04 Urine Bilirubin Negative (Negative) 02/09/25 11:04 Urine Urobilinogen 0.2 mg/dL (Negative) 02/09/25 11:04 Ur Leukocyte Esterase Negative (Negative) 02/09/25 11:04 Urine RBC 0-2 /hpf (0-2) 02/09/25 11:04 Urine WBC 0-5 /hpf (0-5) 02/09/25 11:04 Ur Squamous Epith Cells 0-5 /hpf (0-5) 02/09/25 11:04 Amorphous Sediment Not Reportable 02/09/25 11:04 Urine Bacteria None seen /hpf (NONE) 02/09/25 11:04 Hyaline Casts 0-4 /lpf H 02/09/25 11:04 All radiology interpretation(s) finalized by discharge Discharge Plan Discharge Patient Disposition: Home Clinical Impression: Bilateral flank pain Condition: Stable Prescriptions: No Action rosuvastatin 10 mg tablet 10 mg PO DAILY amlodipine 10 mg tablet 10 mg PO DAILY 90 Days Qty: 90 3RF lisinopril 40 mg tablet 40 mg PO DAILY Qty: 90 0RF meloxicam 15 mg tablet 15 mg PO DAILY tramadol 50 mg tablet 50 mg PO BID dutasteride 0.5 mg capsule See Rx Instructions .ROUTE .COMPLEX Rx Instructions: TAKE 1 CAPSULE BY MOUTH ONCE DAILY IN ADDITION TO TAMSULOSIN tamsulosin 0.4 mg capsule 0.8 mg PO QPM Discharge Orders: Discharge ED (Routine); Ordered 02/09/25 Ordered By: Chano Roach Referrals: Kenan Wilson, [employer] [facility] [Primary Care Provider, Nurse Practitioner] Discharge Diet: Advance as tolerated Discharge Activity: Increase activity as tolerated Patient Instructions: Flank Pain (ED), Patient Portal & Andreas Instructions Activity Restrictions/Additional Instructions: As we discussed, the CT scan did not show any kidney stones. The fact that you saw blood in your urine this morning indicates you may have just passed a stone but there are no further ones that should be passing. There is also chance that the pain could be caused by something else but there is nothing concerning seen on the CT or in the blood work or in the urine requiring antibiotics or hospital admission or surgical intervention. Print Language: [place]ian Coding Level of Care Code [employer] Consultant for [employer]ini Araiza
== END 2025-02-09 15:20 | disposition home or self-care (01) ==
PROVIDERS: Family Medicine; Emergency Provider Student in an Organized Health Care Education/Training Program; PCP Nurse Practitioner
DX: R10.A3 Flank pain, bilateral (principal)
CPT/HCPCS: 36415; 74176; 80053; 81001; 83690; 85025; 96372; 99284; J1171